=== PATIENT | male | born 1990 | race Caucasian/White ===

== ENCOUNTER 2024-01-20 00:22 | Emergency (ER) | payer SELFPAY ==
[2024-01-20] MEDS ORDERED: ACETAMINOPHEN 500 MG TAB ONE (01:41)
[2024-01-20] MEDS ORDERED: DIPHENHYDRAMINE 50 MG/ML VIAL ONE (01:41)
[2024-01-20] MEDS ORDERED: NA CHLORIDE 0.9% 1,000 ML ONE (01:42)
[2024-01-20] MEDS ORDERED: METOCLOPRAMIDE 10 MG/2mL INJ ONE (01:42)
[2024-01-20 01:52] LABS: Absolute Basophils 0.1 K/uL (0-0.5); Absolute Eosinophils 0.5 K/uL (0-0.5); Absolute Lymphocytes (CBC) 2.5 K/uL (0.7-4.9); Absolute Monocytes 0.6 K/uL (0.1-1.3); Absolute Neutrophil 5.3 K/uL (1.8-8.0); Basophils % 0.7 % (0-1.3); Eosinophils % 5.2 % (0-4.4); Hematocrit 48.5 % (39.6-49.0); Hemoglobin 16.4 g/dL (13.6-17.9); Lymphocytes % 28.1 % (15.3-44.8); MCH 30.1 pg (27.0-35.0); MCHC 33.8 g/dL (32.0-36.0); MCV 88.9 fL (80-100); MPV 8.5 fL (7.6-11.3); Monocytes % 6.9 % (3.3-12.3); Neutrophils % 59.1 % (41.7-73.7); Platelets 207 thou/uL (152-406); RBC Red Blood Cell Count 5.46 M/uL (4.33-5.43)
[2024-01-20 02:07] LABS: ALT/SGPT 79 U/L (16-61); AST/SGOT 23 U/L (15-37); Albumin 3.6 g/dL (3.4-5.0); Albumin/Globulin Ratio 1.1 (1.1-1.8); Alkaline Phosphatase 64 U/L (45-117); Anion Gap 6.7 mEq/L (5.0-15.0); BUN Blood Urea Nitrogen 17 mg/dL (7-18); Bicarbonate 27 mEq/L (21-32); Bilirubin Total 0.3 mg/dL (0.2-1.0); Globulin 3.3 g/dL (2.3-3.5); Glomerular Filtration Rate 116 ml/min (=/>90); Glucose Level 103 mg/dL (74-106); Lipase 30 U/L (13-75); Potassium 3.7 mEq/L (3.5-5.1); Protein, Total 6.9 g/dL (6.4-8.2); Sodium Level 139 mEq/L (136-145)
[2024-01-20 02:09] LABS: SARS-CoV-2 Antigen CONTROL BLUE LINE VIS/BG OK; SARS-CoV-2 Antigen Rapid Res Negative (Negative)
[2024-01-20 02:19] LABS: C-Reactive Protein < 2.90 mg/L (<3.00)
--- NOTE | 2024-01-20 03:11 | ER ---
Nurse's Notes [facility] Name: Jordan Dewey Age: 33 yrs Sex: Male : 1990 Arrival Date: 01/20/2024 Time: 00:22 Bed 14 Private MD: Diagnosis: Acute tension type headache, acute right unilateral headache Presentation: 01/19 00:38 Chief complaint: Patient states: PT C/O HEADACHE SINCE SUNDAY. DENIES NAUSEA OR dd2 SENSITIVITY TO LIGHT. Coronavirus screen: At this time, the client does not indicate any symptoms associated with coronavirus-19. Ebola Screen: No symptoms or risks identified at this time. Initial Sepsis Screen: Does the patient meet any 2 criteria? No. Patient's initial sepsis screen is negative. Does the patient have a suspected source of infection? No. Patient's initial sepsis screen is negative. Risk Assessment: Do you want to hurt yourself or someone else? Patient reports no desire to harm self or others. Onset of symptoms was January 17, 2024. 00:38 Method Of Arrival: Ambulatory dd2 00:38 Acuity: LUPE 3 dd2 Triage Assessment: 00:42 Headache History: Denies prior headaches. General: Appears uncomfortable, Behavior is dd2 calm, cooperative, appropriate for age. Pain: Complains of pain in top of head, right ear, right adventist, left occipital area and right occipital area Pain does not radiate. Pain currently is 10 out of 10 on a pain scale. Pain began gradually, Also complains of no other associated symptoms. EENT: No deficits noted. No signs and/or symptoms were reported regarding the EENT system. Neuro: Level of Consciousness is awake, alert, obeys commands, Oriented to person, place, time, situation, Appropriate for age Auto Roller are equal bilaterally Moves all extremities. Full function Gait is steady, Speech is normal, Facial symmetry appears normal, Pupils are PERRLA, Pupil Size: 3 Intact. Cardiovascular: Heart tones S1 S2 present Patient's skin is warm and dry. Respiratory: No deficits noted. Airway is patent Respiratory effort is even, unlabored, Respiratory pattern is regular, symmetrical. GI: Abdomen is non-distended, Abd is soft and non tender. : No deficits noted. No signs and/or symptoms were reported regarding the genitourinary system. Derm: No deficits noted. No signs and/or symptoms reported regarding the dermatologic system. Musculoskeletal: No deficits noted. No signs and/or symptoms reported regarding the musculoskeletal system. Circulation, motion, and sensation intact. Range of motion: intact in all extremities. Historical: - Allergies: 00:42 Sulfa (Sulfonamide Antibiotics); dd2 00:42 PENICILLINS; dd2 00:42 Amoxicillin; dd2 - PMHx: 00:42 None; dd2 - PSHx: 00:42 TUBES IN EARS; dd2 - Immunization history:: Adult Immunizations not up to date. - Infectious Disease History:: Denies. - Social history:: Smoking status: Patient reports the use of cigarette tobacco products, smokes one-half pack cigarettes per day. - Family history:: not pertinent. Screenin:46 [facility] ED Fall Risk Assessment (Adult) History of falling in the last 3 months, dd2 including since admission No falls in past 3 months (0 pts) Confusion or Disorientation No (0 pts) Intoxicated or Sedated No (0 pts) Impaired Gait No (0 pts) Mobility Assist Device Used No (0 pt) Altered Elimination No (0 pt) Score/Fall Risk Level 0 - 2 = Low Risk Oriented to surroundings, Maintained a safe environment, Educated pt \T\ family on fall prevention, incl call for assistance when getting out of bed, Assessed \T\ reinforced patient's understanding of fall precautions, Hourly rounding (assess needs \T\ fall precautionary measures) done. Abuse screen: Denies threats or abuse. Nutritional screening: No deficits noted. Tuberculosis screening: No symptoms or risk factors identified. Assessment: 00:46 Reassessment: SEE TRIAGE ASSESSMENT FOR FULL ASSESSMENT. dd2 Vital Signs: 00:38 BP 146 / 101; Pulse 76; Resp 16; Temp 98.3; Pulse Ox 99% on R/A; Weight 113.4 kg; dd2 Height 6 ft. 2 in. ; Pain 10/10; 01:30 BP 120 / 76; Pulse 56; Resp 16; Pulse Ox 99% on R/A; dd2 02:15 BP 100 / 60; Pulse 57; Resp 16; Pulse Ox 99% on R/A; dd2 03:10 BP 107 / 67; Pulse 64; Resp 16; Temp 98.2; Pulse Ox 99% on R/A; dd2 00:38 Body Mass Index 32.10 (113.40 kg, 187.96 cm) dd2 00:38 Pain Scale: Adult dd2 [place] Coma Score: 00:46 Eye Response: spontaneous(4). Motor Response: obeys commands(6). Verbal Response: dd2 oriented(5). Total: 15. 18:53 Eye Response: spontaneous(4). Motor Response: obeys commands(6). Verbal Response: sp4 oriented(5). Total: 15. ED Course: 00:24 Patient arrived in ED. [id number] 00:30 Sandeep Martinez MD is Attending Physician. sp4 00:32 SOLA EPPERSON, VIJAY is Primary Nurse. dd2 00:42 Triage completed. dd2 00:42 Arm band placed on right wrist. Patient placed in an exam room, on a stretcher, on dd2 pulse oximetry. 00:46 Patient has correct armband on for positive identification. Bed in low position. Call dd2 light in reach. Side rails up X 1. Client placed on continuous cardiac and pulse oximetry monitoring. NIBP monitoring applied. Door closed. Noise minimized. Warm blanket given. Pillow given. Verbal reassurance given. 00:46 No provider procedures requiring assistance completed. Patient maintains SpO2 dd2 saturation greater than 95% on room air. 01:16 CT Head Brain wo Cont In Process Unspecified. EDMS 01:17 CT Facial Bones W/O Con In Process Unspecified. EDMS 01:52 Initial lab(s) drawn, by me, sent to lab. COVID swab sent to lab. Flu and/or RSV swab dd2 sent to lab. Inserted saline lock: 20 gauge in right antecubital area, using aseptic technique. Blood collected. Flushed with 10 mL NS. 03:08 Gerard Ramesh MD is Referral Physician. sp4 03:10 Provided Education on: D/C INSTRUCTIONS AND F/U. dd2 03:10 IV discontinued, intact, bleeding controlled, No redness/swelling at site. Pressure dd2 dressing applied. Administered Medications: 01:52 Drug: NS 0.9% IV 1000 ml IV at 1 bolus Per protocol; to be given as a bolus over 60 dd2 minutes Route: IV; Rate: 1 bolus; Site: right antecubital; 02:07 Follow up: Response: No adverse reaction dd2 02:52 Follow up: IV Status: Completed infusion; IV Intake: 1000ml dd2 01:52 Drug: metoCLOPramide IVP 10 mg IVP once; over 1 to 2 minutes Route: IVP; Site: right dd2 antecubital; 02:07 Follow up: Response: No adverse reaction dd2 01:52 Drug: diphenhydrAMINE IVP 50 mg IVP once Route: IVP; Site: right antecubital; dd2 02:07 Follow up: Response: No adverse reaction dd2 01:52 Drug: Acetaminophen PO 1000 mg PO once Route: PO; dd2 02:07 Follow up: Response: No adverse reaction dd2 Medication: 00:46 VIS not applicable for this client. dd2 Intake: 02:52 IV: 1000ml; Total: 1000ml. dd2 Outcome: 03:10 Discharge ordered by . sp4 03:10 Discharged to home ambulatory, dd2 03:10 Condition: stable 03:10 Discharge instructions given to patient, Instructed on discharge instructions, follow up and referral plans. medication usage, Demonstrated understanding of instructions, follow-up care, medications, 03:34 Patient left the ED. dd2 Signatures: Dispatcher [employer] EDMS Ashley Chicas [email or web address] Sandeep Martinez MD MD sp4 SOLA EPPERSON RN RN dd2 Corrections: (The following items were deleted from the chart) 00:43 00:42 Allergies: No Known Allergies; dd2 dd2
--- NOTE | 2024-01-20 03:11 | EDPHYS ---
Physician Documentation [facility] Name: Jordan Dewey Age: 33 yrs Sex: Male : 1990 Arrival Date: 01/20/2024 Time: 00:22 Bed 14 Private MD: ED Physician Sandeep Martinez HPI: 01/19 00:30 This 33 yrs old Male presents to ER via Unassigned with complaints of sp4 Headache, Worst Ever. 18:53 33-year-old male presents with complaint of the right sided headache associated with sp4 some dizziness. Historical: - Allergies: 00:42 Sulfa (Sulfonamide Antibiotics); dd2 00:42 PENICILLINS; dd2 00:42 Amoxicillin; dd2 - PMHx: 00:42 None; dd2 - PSHx: 00:42 TUBES IN EARS; dd2 - Immunization history:: Adult Immunizations not up to date. - Infectious Disease History:: Denies. - Social history:: Smoking status: Patient reports the use of cigarette tobacco products, smokes one-half pack cigarettes per day. - Family history:: not pertinent. ROS: 18:53 Constitutional: Negative for fever, chills, and weight loss, for right sided head ache sp4 18:53 All other systems are negative, Exam: 18:53 Constitutional: This is a well developed, well nourished patient who is awake, alert, sp4 and in no acute distress. Head/Face: Normocephalic, atraumatic. Eyes: Pupils equal round and reactive to light, extra-ocular motions intact. Lids and lashes normal. Conjunctiva and sclera are not injected. Cornea within normal limits. Periorbital areas with no swelling, redness, or edema. ENT: Nares patent. No nasal discharge, no septal abnormalities noted. Tympanic membranes are normal and external auditory canals are clear. Oropharynx with no redness, swelling, or masses, exudates, or evidence of obstruction, uvula midline. Mucous membranes moist. Neck: Trachea midline, no thyromegaly or masses palpated, and no cervical lymphadenopathy. Supple, full range of motion without nuchal rigidity, or vertebral point tenderness. Chest/axilla: Normal chest wall appearance and motion. Nontender with no deformity. No lesions are appreciated. Cardiovascular: Regular rate and rhythm with a normal S1 and S2. No gallops, murmurs, or rubs. Normal PMI, no JVD. No pulse deficits. Respiratory: Lungs have equal breath sounds bilaterally, clear to auscultation and percussion. No rales, rhonchi or wheezes noted. No increased work of breathing, no retractions or nasal flaring. Abdomen/GI: Soft, with normal bowel sounds. No distension or tympany. No guarding or rebound. No evidence of tenderness throughout. Back: No spinal tenderness. No costovertebral tenderness. Skin: Warm, dry with normal turgor. Normal color with no rashes, no lesions, and no evidence of cellulitis. MS/ Extremity: Pulses equal, no cyanosis. Neurovascular intact. Full, normal range of motion. Neuro: Awake and alert, GCS 15, oriented to person, place, time, and situation. Cranial nerves II-XII grossly intact. Motor strength 5/5 in all extremities. Sensory grossly intact. Psych: Awake, alert, with orientation to person, place and time. Behavior, mood, and affect are within normal limits Vital Signs: 00:38 BP 146 / 101; Pulse 76; Resp 16; Temp 98.3; Pulse Ox 99% on R/A; Weight 113.4 kg; dd2 Height 6 ft. 2 in. ; Pain 10/10; 01:30 BP 120 / 76; Pulse 56; Resp 16; Pulse Ox 99% on R/A; dd2 02:15 BP 100 / 60; Pulse 57; Resp 16; Pulse Ox 99% on R/A; dd2 03:10 BP 107 / 67; Pulse 64; Resp 16; Temp 98.2; Pulse Ox 99% on R/A; dd2 00:38 Body Mass Index 32.10 (113.40 kg, 187.96 cm) dd2 00:38 Pain Scale: Adult dd2 [place] Coma Score: 00:46 Eye Response: spontaneous(4). Motor Response: obeys commands(6). Verbal Response: dd2 oriented(5). Total: 15. 18:53 Eye Response: spontaneous(4). Motor Response: obeys commands(6). Verbal Response: sp4 oriented(5). Total: 15. MDM: 00:53 Medical Screening Exam initiated sp4 03:04 ED course: PROCEDURE: CT Head and Maxillofacial Without Intravenous Contrast CLINICAL sp4 INDICATION: The patient is 33 years old and is Male; Headache, facial pain. TECHNIQUE: Axial computed tomography images of the head/brain and face without intravenous contrast. Sagittal and coronal reformatted images were created and reviewed. This CT exam was performed using one or more of the following dose reduction techniques: automated exposure control, adjustment of the mA and/or kV according to patient size, and/or use of iterative reconstruction technique. COMPARISON: None. FINDINGS: BRAIN: No extra-axial fluid collection. No intracranial hemorrhage. No transtentorial herniation. No focal pendleton-white matter differentiation abnormality. MIDLINE SHIFT: No midline shift. VENTRICLES: Unremarkable No ventriculomegaly. BONES/JOINTS: No fracture of the calvarium or visualized facial bones. SOFT TISSUES: Unremarkable SINUSES: Small right maxillary sinus retention cyst. Partial opacification of the anterior superior left ethmoid air cell, with nonpneumatization of the left frontal sinus. Remainder of the bilateral paranasal sinuses are well-aerated and clear. No abnormal expansion of the paranasal sinuses or bony erosion. MASTOID AIR CELLS: Unremarkable as visualized. No mastoid effusion. ORBITS: Bilateral globes and orbits are intact with no abnormal intraorbital mass, collection, or foreign body. IMPRESSION: 1. No acute intracranial abnormality. No fracture of the calvarium or facial bones. 2. Small right maxillary sinus retention cyst and partial opacification of the anterior superior left ethmoid air cell, with non pneumatization of the left frontal sinus. Remainder of the bilateral paranasal sinuses are well-aerated and clear. . 18:56 Differential diagnosis: cluster headache, sinusitis, tension headache, vasomotor sp4 headache. Data reviewed: vital signs, nurses notes, lab test result(s), radiologic studies, CT scan. 12 00:42 Order name: CBC with Diff; Complete Time: 03:03 sp4 01/19 00:42 Order name: CMP; Complete Time: 03:03 sp4 01/19 00:42 Order name: Lipase; Complete Time: 03:03 sp4 01/19 00:42 Order name: CRP; Complete Time: 03:03 sp4 01/19 00:42 Order name: Influenza Screen (a \T\ B); Complete Time: 03:03 sp4 01/19 00:52 Order name: SARS RAPID; Complete Time: 03:03 sp4 01/19 00:42 Order name: CT Head Brain wo Cont sp4 01/19 00:42 Order name: CT Facial Bones W/O Con sp4 01/19 00:42 Order name: IV Saline Lock; Complete Time: 01:52 sp4 01/19 00:42 Order name: Labs collected and sent; Complete Time: 01:52 sp4 Administered Medications: 01:52 Drug: NS 0.9% IV 1000 ml IV at 1 bolus Per protocol; to be given as a bolus over 60 dd2 minutes Route: IV; Rate: 1 bolus; Site: right antecubital; 02:07 Follow up: Response: No adverse reaction dd2 02:52 Follow up: IV Status: Completed infusion; IV Intake: 1000ml dd2 01:52 Drug: metoCLOPramide IVP 10 mg IVP once; over 1 to 2 minutes Route: IVP; Site: right dd2 antecubital; 02:07 Follow up: Response: No adverse reaction dd2 01:52 Drug: diphenhydrAMINE IVP 50 mg IVP once Route: IVP; Site: right antecubital; dd2 02:07 Follow up: Response: No adverse reaction dd2 01:52 Drug: Acetaminophen PO 1000 mg PO once Route: PO; dd2 02:07 Follow up: Response: No adverse reaction dd2 Disposition: 18:56 Chart complete. sp4 Disposition Summary: 01/20/24 03:10 Discharge Ordered Notes: Location: Home sp4 Problem: new sp4 Symptoms: have improved sp4 Condition: Stable sp4 Diagnosis - Acute tension type headache, acute right unilateral headache sp4 Followup: sp4 - With: Gerard Ramesh MD - When: 7 - 10 days - Reason: Recheck today's complaints Discharge Instructions: - Discharge Summary Sheet sp4 - General Headache Without Cause, [id number] sp4 Forms: - Patient Portal Instructions sp4 Prescriptions: - ondansetron 8 mg Oral Tablet,disintegrating - take 1 tablet ORAL route every 8 hours PRN nausea; 30 tablet; Refills: 0, sp4 Product Selection Permitted Signatures: Dispatcher [employer] EDSandeep Colmenares MD MD sp4 SOLA EPPERSON RN RN dd2 Corrections: (The following items were deleted from the chart) 00:43 00:42 Allergies: No Known Allergies; dd2 dd2
[2024-01-20 06:08] VITALS: O2SAT 99
[2024-01-20 06:25] VITALS: BP 107/67; TEMP 98.2
--- NOTE | 2024-01-20 06:40 | RAD REPORT ---
PROCEDURE: CT Head and Maxillofacial Without Intravenous Contrast CLINICAL INDICATION: The patient is 33 years old and is Male; Headache, facial pain. TECHNIQUE: Axial computed tomography images of the head/brain and face without intravenous contrast. Sagittal and coronal reformatted images were created and reviewed. This CT exam was performed using one or more of the following dose reduction techniques: automated exposure control, adjustment of the mA a nd/or kV according to patient size, and/or use of iterative reconstruction technique. COMPARISON: None. FINDINGS: BRAIN: No extra-axial fluid collection. No intracranial hemorrhage. No transtentorial herniation. No focal pendleton-white matter differentiation abnormality. MIDLINE SHIFT: No midline shift. VENTRICLES: Unremarkable No ventriculomegaly. BONES/JOINTS: No fracture of the calvarium or visualized facial bones. SOFT TISSUES: Unremarkable SINUSES: Small right maxillary sinus retention cyst. Partial opacification of the anterior superior left ethmoid air cell, with nonpneumatization of the left frontal sinus. Remainder of the bilateral paranasal sinuses are well-aerated and clear. No abnormal expansion of the paranasal sinuses or bony erosion. MASTOID AIR CELLS: Unremarkable as visualized. No mastoid effusion. ORBITS: Bilateral globes and orbits are intact with no abnormal intraorbital mass, collection, or f oreign body. IMPRESSION: 1. No acute intracranial abnormality. No fracture of the calvarium or facial bones. 2. Small right maxillary sinus retention cyst and partial opacification of the anterior superior le ft ethmoid air cell, with nonpneumatization of the left frontal sinus. Remainder of the bilateral paranasal sinuses are well-aerated and clear. Electronically signed by: Antonio Tijerina MD 01/20/2024 02:31 AM [facility] Due to temporary technical issues with the PACS/[employer] reporting system, reports are being forrest d by the in-house radiologist without review as a courtesy to ensure prompt reporting the interpreting radiologist is fully responsible for the content of the report. Transcribed Date/Time: 01/20/2024 6:40 AM
--- NOTE | 2024-01-20 06:41 | RAD REPORT ---
PROCEDURE: CT Head and Maxillofacial Without Intravenous Contrast CLINICAL INDICATION: The patient is 33 years old and is Male; Headache, facial pain. TECHNIQUE: Axial computed tomography images of the head/brain and face without intravenous contrast. Sagittal and coronal reformatted images were created and reviewed. This CT exam was performed using one or more of the following dose reduction techniques: automated exposure control, adjustment of the mA a nd/or kV according to patient size, and/or use of iterative reconstruction technique. COMPARISON: None. FINDINGS: BRAIN: No extra-axial fluid collection. No intracranial hemorrhage. No transtentorial herniation. No focal pendleton-white matter differentiation abnormality. MIDLINE SHIFT: No midline shift. VENTRICLES: Unremarkable No ventriculomegaly. BONES/JOINTS: No fracture of the calvarium or visualized facial bones. SOFT TISSUES: Unremarkable SINUSES: Small right maxillary sinus retention cyst. Partial opacification of the anterior superior left ethmoid air cell, with nonpneumatization of the left frontal sinus. Remainder of the bilateral paranasal sinuses are well-aerated and clear. No abnormal expansion of the paranasal sinuses or bony erosion. MASTOID AIR CELLS: Unremarkable as visualized. No mastoid effusion. ORBITS: Bilateral globes and orbits are intact with no abnormal intraorbital mass, collection, or f oreign body. IMPRESSION: 1. No acute intracranial abnormality. No fracture of the calvarium or facial bones. 2. Small right maxillary sinus retention cyst and partial opacification of the anterior superior le ft ethmoid air cell, with nonpneumatization of the left frontal sinus. Remainder of the bilateral paranasal sinuses are well-aerated and clear. Electronically signed by: Antonio Tijerina MD 01/20/2024 02:[address] [facility] Due to temporary technical issues with the PACS/[employer] reporting system, reports are being forrest d by the in-house radiologist without review as a courtesy to ensure prompt reporting the interpreting radiologist is fully responsible for the content of the report. Transcribed Date/Time: 01/20/2024 6:40 AM
== END 2024-01-20 03:34 | disposition home or self-care (01) ==
LOC: ER 00:22
DX: G44.209 Tension-type headache, unspecified, not intractable (principal); F17.210 Nicotine dependence, cigarettes, uncomplicated
CPT/HCPCS: 36415; 70450; 70486; 76377; 80053; 83690; 85025; 86140; 87804; 87811; 96361; 96374; 96375; 99284; J1200; J2765; J7030